=== PATIENT | female | born 1990 | race Caucasian/White ===

== ENCOUNTER → 2017-06-09 | Outpatient (CLI) | payer OTHER ==
[~2017-06-09] VITALS: Ht 157.5 cm; Wt 72.6 kg
[~2017-06-09] MED LIST: BUTALB-APAP-CA1 EACH PO; HYDROCODON-ACE1 EAC7 PO; MEDROLDOSEPACK PO; PARAGARD T 3801 EACH IMPLANT; PRENATAL ONE T1 EACH PO; ZOLOFT50 MG PO
--- NOTE | ~2017-06-09 | HPC ---
[facility] [place] [address] PAIN MANAGEMENT CONSULTATION Name: SAIDA ABREU Room #: REG ANTHONY GuajardoAntonio#: [id number] Admission: 06/09/17 Attend Phys: Peter Martin MD Discharge: Date of : 89 Report #: [id number] THIS REPORT FOR: //name// CC: FAM physician/PCP Peter Martin DATE OF SERVICE: 06/09/2017 REFERRING PHYSICIAN: Dr. Keshia Grijalva. CHIEF COMPLAINT: Upper back pain. HISTORY OF PRESENT ILLNESS: The patient is a 27-year-old female who has been referred to the pain clinic for evaluation of upper back pain. She describes this discomfort as very intense. It is near the middle of her back near her scapula. Notes that her pain is worse when she sits with poor posture. Notes that the pain is better when she uses a heating pad. She also notes that her back feels better when it is popped. Described it as constant, steady, cramping, aching, rates it as a 4-5. Today is 4. 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 Certain activities exacerbate her pain. She has two children, one 5-year-old and an 8-month-old, being a mother with the activities there entailed can cause exacerbation of her pain and discomfort. She has not had back surgery. She has had no trauma to her back. She is at this juncture. There are certain medications. She is unable to take because of this. ALLERGIES: ZOFRAN, PROBIOTIC. MEDICATIONS: Zoloft 50 mg, hydrocodone 5/325, vitamins, Fioricet 1-2 tablets p.r.n. headache. PAST MEDICAL HISTORY: Anemia. PAST SURGICAL HISTORY: Eye surgery in 1993, eye surgery in 1999, eye surgery 2005; 11/01/2001 ; 10/2016 . 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 She is working at this juncture. She has two children, 8-month-old and a 5-year-old, states her status is single. Denies use of tobacco one to two alcoholic beverages per week. Denies any use of recreational drugs. REVIEW OF SYSTEMS: Questionnaire in the chart. A 14-point review generally good health, fatigue, weakness, headaches, wears glasses. Eye disease/injury abdominal pain, depression, anemia with pregnancies. PHYSICAL EXAMINATION: VITAL SIGNS: Blood pressure 100/55, pulse 64, respiratory rate 20, room air [facility] [address] [place] [address] PAIN MANAGEMENT CONSULTATION Name: SAIDA ABREU [id number] Admission: 06/09/17 Attend Phys: Peter Martin MD Discharge: Date of : 89 Report #: [id number] saturation 99%. Height 5 feet 2 inches, weight 160 pounds, BMI is 29. The patient has not fallen. HEENT: The patient has had some eye surgeries in the past with somewhat of a disconjugate gaze. HEART: Regular rate. CHEST: Clear to auscultation. MUSCULOSKELETAL: Muscle strength is judged to be 5/5 upper extremities. She complains of pain and discomfort in the mid spine area. Approximately the area between the rhomboids. Palpation in both left and right side produced pain and discomfort. Some discomfort in the area of the trapezius bilaterally. There is no radicular pain into the chest and does not appear to be significant pain with pressure in the area of the sternum or up in the anterior thoracic area. LABORATORY DATA: No laboratory values are available at the time of our exam. IMPRESSION: Chronic back pain. The patient states she has seen a chiropractor, she has tried physical therapy. She has been , GERD, seasonal allergic rhinitis. Myofascial pain. RECOMMENDATIONS: We discussed treatment options with the patient. At this juncture, we will proceed with the most conservative way. She will be given a Medrol Dosepak to take in the interim. Possibility of trigger point injections available. She will continue with nonsteroidal anti-inflammatory medications. Given that she is continuing to breastfeed other medications might prove somewhat problematic and we will evaluate the possibility of these in the future. We would like to thank you for letting us participate in her care. We hope she continues to improve. <ELECTRONICALLY SIGNED> By: Peter Martin MD 06/30/17 [id number] Peter Martin MD /[facility]
[2017-06-09 09:30] VITALS: BP 100/55
== END ==
LOC: PAIN 07:00
DX: M79.1 Myalgia (principal); M54.89 Other dorsalgia; J30.89 Other allergic rhinitis; K21.9 Gastro-esophageal reflux disease without esophagitis; Z98.890 Other specified postprocedural states